=== PATIENT | female | born 1965 | race Caucasian/White ===

== ENCOUNTER 2018-03-25 10:34 | Emergency (ER) | payer OTHER ==
[2018-03-25] MEDS ORDERED: methylPREDNISolone Sodium Succinate 125 MG/2 ML SDV IM ONE (10:53)
--- NOTE | 2018-03-25 10:58 | EDM.PDOC ---
ED HPI GENERAL MEDICAL PROBLEM - General Chief Complaint: Skin Complaint Stated Complaint: ALLERGIC REACTION Time Seen by Provider: 03/25/18 10:52 Source of Information: Reports: Patient History Limitations: Reports: No Limitations - History of Present Illness INITIAL COMMENTS - FREE TEXT/NARRATIVE: HISTORY AND PHYSICAL: []52-year-old female presenting with a rash that started on her right arm now has spread across her abdomen truncal legs and right arm she is just miserable she had surgery scheduled hardware in her foot the surgeon did not want her to have steroids 3 days ago History of Present Illness: []At this time patient is willing to delay her surgery she is just miserable from this reaction she was rolling of jump rope when this originated. Then she saw Dr. Martin on Monday 5 days ago, now she has extended the area of the rash and does not want to wait for further action. Review of Systems: As per history of present illness and below otherwise all systems reviewed and negative. Past medical history: As per history of present illness and as reviewed below otherwise noncontributory. Surgical history: As per history of present illness and as reviewed below otherwise noncontributory. Social history: No reported history of drug or alcohol abuse. Family history: As per history of present illness and as reviewed below otherwise noncontributory. Physical exam: Alert and oriented female answering questions appropriately in full sentences without any shortness of breath. Generalized rash red erythematous spotting arms neck abdomen trunk back legs. HEENT: Atraumatic, normocehpalic, pupils reactive, negative for conjunctival pallor or scleral icterus, mucous membranes moist, throat clear, neck supple, nontender, trachea midline. Lungs: Clear to auscultation, breath sounds equal bilaterally, chest non tender. Heart: S1S2, regular, negative for clicks, rubs, or JVD. Abdomen: Soft, nondistended, nontender. Negative for masses or hepatossplenmegaly. Negative for costovertebral tenderness. Pelvis: Stable nontender. Genitourinary: Deferred. Rectal: Deferred Extremities: Atraumatic, negative for cords or calf pain. Neurovascular unremarkable. Neuro: Awake, alert, oriented. Cranial nerves II through XII unremarkable. Cerebellum unremarkable. Motor and sensory unremarkable throughout. Exam nonfocal. Diagnostics: [] Therapeutics: []Solu-Medrol 125 IM Impression: []Contact dermatitis Plan: []Discharged home Medrol Dosepak Follow-up with your primary care provider Cancel surgery at this time and reschedule for later date. Return to the emergency department instructed to discuss Definitive disposition and diagnosis as appropriate pending reevaluation and review of above. 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 Musculoskeletal History: Reports: None Neurological History: Reports: None Psychiatric History: Reports: None Endocrine/Metabolic History: Reports: None Hematologic History: Reports: None Immunologic History: Reports: None Oncologic (Cancer) History: Reports: None Dermatologic History: Reports: None - Past Surgical History Head Surgeries/Procedures: Reports: None HEENT Surgical History: Reports: None Cardiovascular Surgical History: Reports: None Respiratory Surgical History: Reports: None GI Surgical History: Reports: None Female Surgical History: Reports: None Endocrine Surgical History: Reports: None Neurological Surgical History: Reports: None Musculoskeletal Surgical History: Reports: Other (See Below) Other Musculoskeletal Surgeries/Procedures:: shortening of left toes, bunion surgery Oncologic Surgical History: Reports: None Dermatological Surgical History: Reports: None Social & Family History - Family History Family Medical History: Noncontributory - Tobacco Use Smoking Status *Q: Never Smoker Second Hand Smoke Exposure: No - Caffeine Use Caffeine Use: Reports: Coffee - Recreational Drug Use Recreational Drug Use: No ED ROS GENERAL - Review of Systems Review Of Systems: ROS reveals no pertinent complaints other than HPI. ED EXAM, SKIN/RASH Exam: See Below (see dictation) Course - Vital Signs Last Recorded V/S: Last Vital Signs Temp 36.2 C 03/25/18 10:47 Pulse 72 03/25/18 10:47 Resp 18 03/25/18 10:47 BP 131/72 03/25/18 10:47 Pulse Ox 97 03/25/18 10:47 Departure - Departure Time of Disposition: 10:56 Disposition: Home, Self-Care 01 Condition: Good Clinical Impression: Contact dermatitis Qualifiers: Contact dermatitis type: allergic Contact dermatitis trigger: unspecified trigger Qualified Code(s): L23.9 - Allergic contact dermatitis, unspecified cause - Discharge Information Prescriptions: methylPREDNISolone [Medrol] 4 mg PO ASDIRECTED #1 dosepk Instructions: Rash, Contact Dermatitis, [id number] Referrals: Eduard Mccormick MD [Primary Care Provider] - Additional Instructions: The following information is given to patients seen in the emergency department who are being discharged to home. This information is to outline your options for follow-up care. We provide all patients seen in our emergency department with a follow-up referral. The need for follow-up, as well as the timing and circumstances, are variable depending upon the specifics of your emergency department visit. If you don't have a primary care physician on staff, we will provide you with a referral. We always advise you to contact your personal physician following an emergency department visit to inform them of the circumstance of the visit and for follow-up with them and/or the need for any referrals to a consulting specialist. The emergency department will also refer you to a specialist when appropriate. This referral assures that you have the opportunity for followup care with a specialist. All of these measure are taken in an effort to provide you with optimal care, which includes your followup. Under all circumstances we always encourage you to contact your private physician who remains a resource for coordinating your care. When calling for followup care, please make the office aware that this follow-up is from your recent emergency room visit. If for any reason you are refused follow-up, please contact the [facility] emergency department at and asked to speak to the emergency department charge nurse. Continue with Benadryl 4 times daily 2 capsules Zyrtec daily 2 weeks Continue with [id number]-smemrph hydrocortisone cream Medrol Dosepak Follow up with your primary care provider Delay surgery until rash has resolved Return to the emergency department as directed and discussed
== END 2018-03-25 12:49 | disposition home or self-care (01) ==
LOC: MW.ED 10:34
DX: L23.9 Allergic contact dermatitis, unspecified cause (principal)
CPT/HCPCS: 96372; 99282; J2930

== ENCOUNTER 2021-05-13 18:56 | Emergency (ER) | payer BC, OTHER ==
--- NOTE | 2021-05-13 20:33 | EDM.PDOC ---
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 She states that it soaked through approximately 3 tissues. She denies any pain in this area and has not had any drainage prior to this. She states that the incision overall appears closed but she states there may be an opening on the bottom. She denies any fevers but states that she does have some chills and some fatigue. She denies any abdominal pain, chest pain, shortness of breath, nausea, vomiting, diarrhea, constipation, melena, hematochezia. She states that she overall feels well she just wanted to make sure it was not infected. REVIEW OF SYSTEMS: Constitutional: Denies fever, chills. Eyes: Denies eye pain Ears, Nose, Mouth, & Throat: Denies earache Cardiovascular: Denies chest pain Respiratory: Denies shortness of breath Gastrointestinal: Denies Nausea, vomiting, diarrhea, hematochezia. Genitourinary: Denies hematuria Skin: Positive for yellow oozing from postsurgical incision MSK: Denies joint pain Neurological: Denies blurred vision, numbness, tingling, weakness Psychiatric: Denies depression PAST MEDICAL HISTORY: As per history of present illness and as reviewed below otherwise noncontributory. SURGICAL HISTORY: As per history of present illness and as reviewed below otherwise noncontributory. SOCIAL HISTORY: As per history of present illness and as reviewed below otherwise noncontributory. FAMILY HISTORY: As per history of present illness and as reviewed below otherwise noncontributory. EXAMINATION OF ORGAN SYSTEMS/BODY AREAS: Constitutional: Blood pressure is 128/80, heart rate 75, respiratory rate 16 with an oxygen saturation of 97% on room air. Temperature 37.1 General: Overall well-appearing woman who is in no acute distress Psychiatric: Appropriate mood and affect. Eyes: No scleral icterus or conjunctival erythema ENMT: Moist mucous membranes. No pharyngeal erythema Cardiovascular: Regular, rate, and rhythm. No gallops, murmurs, or rubs. Respiratory: Lungs clear to auscultation bilaterally. No wheezes, rales, or rhonchi. Gastrointestinal: Soft, non-tender, non-distended. Normoactive bowel sounds no rebound or guarding Genitourinary: No suprapubic tenderness Musculoskeletal: Normal range of motion. Skin: There are multiple areas of laparoscopic postsurgical incisions that are well healing without any erythema. There is a approximately 4 to 5 cm periumbilical midline incision which appears to be closed without any dehiscence. On the inferior portion there is an approximately 2 x 2 centimeter area of erythema on the skin and underneath the entire postsurgical incision there is some induration without any fluctuance. This area is nontender. 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 There is some erythema on the skin just on the inferior portion of the incision. There does not appear to be any dehiscence. This area is not warm or tender. There is some induration throughout the entire incision but there is no fluctuance. At this time I did discuss with patient that I would like to obtain labs including CBC, CMP and lactic acid. I did discuss with her that we could obtain a CT however our ultrasound team is not available until tomorrow morning. I did discuss that I could perform a bedside ultrasound to evaluate for any posterior acoustic enhancement or ever any evidence of a fluid collection. She elected for a bedside ultrasound that she is not febrile and overall appears well. She states that she just mainly concerned because she cannot have a lot of infections given that she is on maintenance chemotherapy. Bedside soft tissue ultrasound Multiple views along the midline periumbilical postsurgical incision were obtained. There was no area of fluid collection or posterior acoustic enhancement. There was no abnormality of the skin at all. Interpretation: No evidence of abscess or fluid collection Laboratory: CBC reveals a normocytic anemia with a hemoglobin of 11.6 hematocrit of 35.9.INR is 1.13, lactic acid is 0.7. After labs I did reevaluate the patient. There was no further drainage coming from the surgical wound. I did discuss with him that I would like to contact their surgeon regarding further recommendations. I contacted Dr. Estes who is the surgeon that works on Dr. Clark team and at this time she recommended prophylactic antibiotics for infection and to contact the surgeon's office tomorrow to get an earlier appointment. I did discuss this with the patient. She was amenable to this plan. I did discuss with her that if she had worsening redness, pain, or purulent drainage she needed to return for the emergency department. She was amenable discharge at this time and had no further questions. DISPOSITION: The patient was discharged home in stable condition. The patient will follow up with the general surgeon as soon as possible CONDITION: Fair PROCEDURES: Bedside soft tissue ultrasound FINAL IMPRESSION(S)/DIAGNOSES: 1. Acute postsurgical wound cellulitis Giovani Rose M.D. 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 Musculoskeletal History: Reports: None Neurological History: Reports: None Psychiatric History: Reports: None Endocrine/Metabolic History: Reports: None Hematologic History: Reports: None Immunologic History: Reports: None Oncologic (Cancer) History: Reports: None Dermatologic History: Reports: None - Infectious Disease History Infectious Disease History: Reports: None - Past Surgical History Head Surgeries/Procedures: Reports: None HEENT Surgical History: Reports: None Cardiovascular Surgical History: Reports: None Respiratory Surgical History: Reports: None GI Surgical History: Reports: Cholecystectomy Female Surgical History: Reports: None Endocrine Surgical History: Reports: None Neurological Surgical History: Reports: None Musculoskeletal Surgical History: Reports: Other (See Below) Other Musculoskeletal Surgeries/Procedures:: shortening of left toes, bunion surgery Oncologic Surgical History: Reports: None Dermatological Surgical History: Reports: None Social & Family History - Family History Family Medical History: No Pertinent Family History - Tobacco Use Tobacco Use Status *Q: Never Tobacco User Second Hand Smoke Exposure: No - Caffeine Use Caffeine Use: Reports: Coffee - Recreational Drug Use Recreational Drug Use: No ED ROS GENERAL - Review of Systems Review Of Systems: See Below ED EXAM, GENERAL - Physical Exam Exam: See Below Course - Vital Signs Last Recorded V/S: Last Vital Signs Temp 37.1 C 05/13/21 19:12 Pulse 75 05/13/21 19:12 Resp 16 05/13/21 19:12 BP 128/80 05/13/21 19:12 Pulse Ox 97 05/13/21 19:12 - Orders/Labs/Meds Labs: Laboratory Tests 05/13/21 05/13/21 05/13/21 Range/Units 20:09 20:09 20:09 WBC 9.91 (4.0-11.0) K/uL RBC 3.78 L (4.30-5.90) M/uL Hgb 11.6 L (12.0-16.0) g/dL Hct 35.9 L (36.0-46.0) % MCV 95.0 (80.0-98.0) fL MCH 30.7 (27.0-32.0) pg MCHC 32.3 (31.0-37.0) g/dL RDW Std Deviation 49.1 (28.0-62.0) fl RDW Coeff of Chris 14 (11.0-15.0) % Plt Count 384 (150-400) K/uL MPV 9.70 (7.40-12.00) fL Neut % (Auto) 51.5 (48.0-80.0) % Lymph % (Auto) 20.7 (16.0-40.0) % [place] % (Auto) 18.9 H (0.0-15.0) % Eos % (Auto) 8.4 H (0.0-7.0) % Baso % (Auto) 0.5 (0.0-1.5) % Neut # (Auto) 5.1 (1.4-5.7) K/uL Lymph # (Auto) 2.1 (0.6-2.4) K/uL [place] # (Auto) 1.9 H (0.0-0.8) K/uL Eos # (Auto) 0.8 H (0.0-0.7) K/uL Baso # (Auto) 0.1 (0.0-0.1) K/uL Nucleated RBC % 0.0 /100WBC Nucleated RBCs # 0 K/uL INR 1.13 Lactic Acid 0.7 (0.4-2.0) mmol/L Meds: Medications Discontinued Medications Generic Name Dose Route Start Last Admin Trade Name Freq PRN Reason Stop Dose Admin Cephalexin 500 mg 05/13/21 21:05 05/13/21 21:12 Cephalexin 500 Mg Cap PO 05/13/21 21:06 500 mg ONETIME ONE Administration Departure - Departure Time of Disposition: 21:05 Disposition: Home, Self-Care 01 Condition: Fair Clinical Impression: Postoperative cellulitis of surgical wound - Discharge Information *PRESCRIPTION DRUG MONITORING PROGRAM REVIEWED*: No *COPY OF PRESCRIPTION DRUG MONITORING REPORT IN PATIENT FREDDIE: No Prescriptions: cephALEXin [Cephalexin] 500 mg PO Q6H #19 tablet Instructions: Cellulitis, Adult, [id number] Referrals: Sarahi Carrizales DO [Primary Care Provider] - Forms: ED Department Discharge Additional Instructions: Your evaluated today on an emergent basis. At this time all of your labs were normal. We did do a bedside ultrasound which did not reveal any obvious area of fluid collection to suggest a infection like an abscess. There is some redness on that bottom part of the wound. I did contact general surgery in [facility] and they recommended Keflex 4 times a day and for you to call Dr. Cavanaugh's office tomorrow to get in earlier appointment. As discussed if you have any increased redness, increased drainage, or you are concerned I would like you to return to the emergency department. [facility] - Primary Care [address] [place] [id number] [address] [address] The patient is informed of any results of their evaluation and diagnostic workup and all questions are answered. They are given discharge instructions and return precautions. The patient is stable for discharge. The patient states they understand and agree with the plan and that they will return if their symptoms get worse or if they have any new concerns. The following information is given to patients seen in the emergency department who are being discharged to home. This information is to outline your options for follow-up care. We provide all patients seen in our emergency department with a follow-up referral. The need for follow-up, as well as the timing and circumstances, are variable depending upon the specifics of your emergency department visit. If you don't have a primary care physician on staff, we will provide you with a referral. We always advise you to contact your personal physician following an emergency department visit to inform them of the circumstance of the visit and for follow-up with them and/or the need for any referrals to a consulting specialist. The emergency department will also refer you to a specialist when appropriate. This referral assures that you have the opportunity for follow-up care with a specialist. All of these measure are taken in an effort to provide you with optimal care, which includes your follow-up. Under all circumstances we always encourage you to contact your private physician who remains a resource for coordinating your care. When calling for follow-up care, please make the office aware that this follow-up is from your recent emergency room visit. If for any reason you are refused follow-up, please contact the [facility] Emergency Department at and asked to speak to the emergency department charge nurse. Sepsis Event Note (ED) - Evaluation Sepsis Screening Result: No Definite Risk
[2021-05-13] MEDS ORDERED: Cephalexin 500 MG Cap PO ONE (21:05)
== END 2021-05-13 21:18 | disposition home or self-care (01) ==
LOC: MW.ED 18:56
DX: T81.40XA Infection following a procedure, unspecified, initial encounter (principal); L03.311 Cellulitis of abdominal wall; Z88.8 Allergy status to other drugs, medicaments and biological substances
CPT/HCPCS: 36415; 83605; 85025; 85610; 99284; A9270; 99283

== ENCOUNTER 2023-09-27 20:14 | Emergency (ER) | payer SELFPAY ==
[2023-09-27] MEDS ORDERED: Morphine 4 MG/ML Syringe IVPUSH ONE (21:03)
[2023-09-27 21:05] LABS: BASOPHILS ABSOLUTE AUTO 0.05 K/uL (0.00-0.20); BASOPHILS PERCENT AUTO 0.5 % (0.0-1.0); EOSINOPHILS ABSOLUTE AUTO 0.04 K/uL (0.00-0.45); EOSINOPHILS PERCENT AUTO 0.4 % (0.0-6.0); HEMATOCRIT 32.7 % (37.0-47.0); HEMOGLOBIN 11.2 g/dL (12.0-16.0); IMMATURE GRAN ABSOLUTE AUTO 0.03 K/uL (0.00-0.05); IMMATURE GRAN PERCENT AUTO 0.3 % (0.0-0.4); LYMPHOCYTES ABSOLUTE AUTO 4.34 K/uL (1.00-4.80); LYMPHOCYTES PERCENT AUTO 42.8 % (24.0-44.0); MEAN CORPUSCULAR HEMOGLOBIN 30.2 pg (28.0-32.0); MEAN CORPUSCULAR HGB CONC 34.3 g/dL (32.0-36.0); MEAN CORPUSCULAR VOLUME 88.1 fL (83.0-99.0); MEAN PLATELET VOLUME 9.8 fL (9.4-12.3); MONOCYTES ABSOLUTE AUTO 1.41 K/uL (0.00-0.80); MONOCYTES PERCENT AUTO 13.9 % (0.0-8.0); NEUTROPHILS ABSOLUTE AUTO 4.28 K/uL (1.80-7.70); NEUTROPHILS PERCENT AUTO 42.1 % (41.0-71.0); PLATELET COUNT,PLT 494 K/uL (150-400); WHITE BLOOD CELL COUNT,WBC 10.15 K/uL (3.9-11.3)
[2023-09-27] MEDS ORDERED: Ondansetron 4 MG/2 ML SDV IVPUSH ONE (21:15)
[2023-09-27 21:34] LABS: A/G RATIO 0.7 (0.9-1.6); ALBUMIN 3.4 g/dL (3.4-5.0); BILIRUBIN TOTAL 0.4 mg/dL (0.2-1.0); CALCIUM 9.8 mg/dL (8.5-10.1); CARBON DIOXIDE,CO2 24.5 mmol/L (21.0-32.0); CREATININE 1.4 mg/dL (0.6-1.0); EST CRCL DRUG DOSING (CG) 38.93 mL/min; POTASSIUM,K 3.7 mmol/L (3.5-5.1); PROTEIN TOTAL,TP 8.4 g/dL (6.4-8.2)
[2023-09-27 21:58] LABS: BILIRUBIN,URINE NEGATIVE (NEGATIVE); COLOR,URINE YELLOW; GLUCOSE,URINE NEGATIVE (NEGATIVE); KETONES,URINE NEGATIVE (NEGATIVE); LEUKOCYTE ESTERASE,URINE NEGATIVE (NEGATIVE); NITRITE,URINE POSITIVE (NEGATIVE); OCCULT BLOOD,URINE TRACE-INTACT (NEGATIVE); PROTEIN,URINE 30 mg/dL (NEGATIVE); UROBILINOGEN,URINE 0.2 EU/dL (<2.0)
[2023-09-27 22:01] LABS: APPEARANCE,URINE SLT CLOUDY
[2023-09-27 22:07] LABS: RED BLOOD CELL COUNT 3.71 M/uL (4.10-5.30)
[2023-09-27 22:10] LABS: BACTERIA,URINE 3+ (NEGATIVE); EPITHELIAL CELLS,URINE FEW (NONE-FEW); RBC,URINE 0-2 (0-2/HPF); WBC,URINE 20-30 (0-5/HPF)
[2023-09-27] MEDS ORDERED: cefTRIAXone 1 GM Vial IM ONE (22:33)
[2023-09-27] MEDS ORDERED: Sodium Chloride 0.9% 1,000 ML IV ONE (22:35)
[2023-09-27] MEDS ORDERED: cefTRIAXone 1 GM in Sodium Chloride 0.9% 50 ML IV ONE (22:38)
[2023-09-27] MEDS ORDERED: Morphine 2 MG/ML SYRINGE IVPUSH ONE (23:03)
[2023-09-27] MEDS ORDERED: Iopamidol 755 Mg/ML 100 ML Bottle IVPUSH ONE (23:20)
[2023-09-28] MEDS ORDERED: Acetaminophen/HYDROcodone 325-10 MG Tab PO ONE (03:09)
== END 2023-09-28 04:18 | disposition home or self-care (01) ==
LOC: MW.ED 20:14
DX: N13.6 Pyonephrosis (principal); Z90.49 Acquired absence of other specified parts of digestive tract; Z79.899 Other long term (current) drug therapy; Z79.891 Long term (current) use of opiate analgesic; Z88.8 Allergy status to other drugs, medicaments and biological substances
CPT/HCPCS: 36415; 74177; 80053; 81001; 85025; 96365; 96375; 96376; 99284; A9270; J0696; J2270; J2405; J3490; J7030; Q9967

== ENCOUNTER 2024-03-11 14:48 | Emergency (ER) | payer SELFPAY ==
[2024-03-11 15:16] LABS: APPEARANCE,URINE SLT CLOUDY; BILIRUBIN,URINE NEGATIVE (NEGATIVE); COLOR,URINE YELLOW; GLUCOSE,URINE NEGATIVE (NEGATIVE); KETONES,URINE NEGATIVE (NEGATIVE); LEUKOCYTE ESTERASE,URINE MODERATE (NEGATIVE); NITRITE,URINE NEGATIVE (NEGATIVE); OCCULT BLOOD,URINE LARGE (NEGATIVE); PH,URINE 6.5 (5.0-8.0); PROTEIN,URINE NEGATIVE (NEGATIVE); UROBILINOGEN,URINE 0.2 EU/dL (<2.0)
[2024-03-11 15:27] LABS: BACTERIA,URINE 1+ (NEGATIVE); EPITHELIAL CELLS,URINE RARE (NONE-FEW); RBC,URINE 25-28 (0-2/HPF); WBC,URINE 15-18 (0-5/HPF)
[2024-03-11 15:46] LABS: BASOPHILS ABSOLUTE AUTO 0.05 K/uL (0.00-0.20); BASOPHILS PERCENT AUTO 0.6 % (0.0-1.0); EOSINOPHILS ABSOLUTE AUTO 0.09 K/uL (0.00-0.45); EOSINOPHILS PERCENT AUTO 1.1 % (0.0-6.0); HEMATOCRIT 26.4 % (37.0-47.0); HEMOGLOBIN 8.7 g/dL (12.0-16.0); IMMATURE GRAN ABSOLUTE AUTO 0.07 K/uL (0.00-0.05); IMMATURE GRAN PERCENT AUTO 0.8 % (0.0-0.4); LYMPHOCYTES ABSOLUTE AUTO 2.44 K/uL (1.00-4.80); LYMPHOCYTES PERCENT AUTO 28.6 % (24.0-44.0); MEAN CORPUSCULAR HEMOGLOBIN 29.6 pg (28.0-32.0); MEAN CORPUSCULAR VOLUME 89.8 fL (83.0-99.0); MEAN PLATELET VOLUME 9.5 fL (9.4-12.3); MONOCYTES ABSOLUTE AUTO 1.37 K/uL (0.00-0.80); MONOCYTES PERCENT AUTO 16.1 % (0.0-8.0); NEUTROPHILS PERCENT AUTO 52.8 % (41.0-71.0); NRBC ABSOLUTE 0.02 K/uL (0.00-0.02); NRBC PERCENT 0.2 /100WBC (0.0-0.2); PLATELET COUNT,PLT 552 K/uL (150-400); RED BLOOD CELL COUNT 2.94 M/uL (4.10-5.30); WHITE BLOOD CELL COUNT,WBC 8.52 K/uL (3.9-11.3)
[2024-03-11 16:03] LABS: ALBUMIN 1.8 g/dL (3.4-5.0); BILIRUBIN TOTAL 0.3 mg/dL (0.2-1.0); CALCIUM 8.8 mg/dL (8.5-10.1); CARBON DIOXIDE,CO2 23.3 mmol/L (21.0-32.0); CREATININE 0.9 mg/dL (0.6-1.0); EST CRCL DRUG DOSING (CG) 60.56 mL/min; MAGNESIUM 1.3 mg/dL (1.8-2.4)
[2024-03-11 16:05] LABS: A/G RATIO 0.4 (0.9-1.6)
[2024-03-11 16:06] LABS: INR 1.46 (0.86-1.11)
[2024-03-11 18:48] LABS: HEMATOCRIT 25.8 % (37.0-47.0); HEMOGLOBIN 8.7 g/dL (12.0-16.0); MEAN CORPUSCULAR HEMOGLOBIN 30.1 pg (28.0-32.0); MEAN CORPUSCULAR HGB CONC 33.7 g/dL (32.0-36.0); MEAN CORPUSCULAR VOLUME 89.3 fL (83.0-99.0); MEAN PLATELET VOLUME 9.5 fL (9.4-12.3); PLATELET COUNT,PLT 572 K/uL (150-400); RED BLOOD CELL COUNT 2.89 M/uL (4.10-5.30); WHITE BLOOD CELL COUNT,WBC 10.11 K/uL (3.9-11.3)
[2024-03-11 19:19] LABS: BASOPHILS PERCENT MAN 0 % (0-1); EOSINOPHILS PERCENT MAN 0 % (0-6); LYMPHOCYTES ABSOLUTE MAN 3.54 K/uL (1.00-4.80); LYMPHOCYTES PERCENT MAN 35 % (24-44); MONOCYTES ABSOLUTE MAN 1.01 K/uL (0.00-0.80); MONOCYTES PERCENT MAN 10 % (0-8); SEG NEUTROPHILS ABSOLUTE MAN 5.56 K/uL (1.80-7.70); SEG NEUTROPHILS PERCENT MAN 55 % (41-71)
== END 2024-03-11 19:21 | disposition home or self-care (01) ==
LOC: MW.ED 14:48
DX: N39.0 Urinary tract infection, site not specified (principal); Z79.899 Other long term (current) drug therapy; Z88.8 Allergy status to other drugs, medicaments and biological substances; Z88.5 Allergy status to narcotic agent; Z75.8 Other problems related to medical facilities and other health care
CPT/HCPCS: 36415; 80053; 81001; 81003; 83735; 85025; 85610; 85730; 87086; 99283